=== PATIENT | female | born 1935 | race African-American/Black ===

== ENCOUNTER → 2016-05-15 | Outpatient (CLI) | payer MEDICARE, OTHER ==
[2015-02-01 11:32] VITALS: BP 151/89
[~2016-05-15] MED LIST: ATOR40TA59 PO; CITA40TA5 PO; GLIP10TA13 PO; HYDR-2666 PO; LISI1TAB7 PO; LOSA100T6 PO; MELO-156 PO; METO25TA4 PO; SITA100T PO
--- NOTE | 2016-05-15 17:32 | RAD ---
CT of the chest, abdomen and pelvis with out contrast, 05/15/2016: History: Restaging colon cancer Multidetector CT imaging was performed following oral ingestion of contrast. No IV contrast was administered as requested. Comparison is made to a study from 11/30/2015. There is a tiny 4 mm nodule in the lateral aspect of the right upper lobe as seen on image 18 of series #2 which is unchanged. There is a 2 mm nodule located just medial to this first nodule which is also unchanged. There is a 2-3 mm nodule in the lateral aspect of the right middle lobe as seen on image 32 of series #2 which appears to be unchanged. These nodules were also present in retrospect on the 08/21/2015 study and has shown no significant change. There are mild linear opacities posteromedially in both lung bases which are unchanged and probably represent areas of scarring. There is calcific plaquing of the aorta and coronary arteries. The ascending aorta is at the upper limits of normal in size but unchanged. No mediastinal adenopathy is seen. There appears to be a small hiatal hernia. There is a small calcification within the lateral aspect of the liver. The unopacified liver is otherwise unremarkable. No gallbladder abnormality is seen. No pancreatic abnormality is detected. The spleen is of normal size. The unopacified kidneys show no abnormality. Both adrenal glands are mildly enlarged but unchanged. The right adrenal gland demonstrates a low internal CT number compatible with an adrenal adenoma or hyperplasia. The left adrenal gland demonstrates an internal CT number of 20-35 Hounsfield units which is nonspecific. Aortoiliac calcific plaquing is present. No abdominal or pelvic adenopathy is seen. The bowel loops are not dilated. No free fluid is evident in the abdomen or pelvis. There is diastases of the rectus abdominis musculature with anterior bulging of the intervening fascia. There are moderate scattered degenerative changes in the spine. No destructive bony lesion is seen. IMPRESSION: 1. Stable tiny pulmonary nodules. 2. Bibasilar atelectasis and/or scarring. 3. Unchanged bilateral adrenal enlargement. 4. No new abnormality is detected. PQRS Compliance Statement: One or more of the following individualized dose reduction techniques were utilized for this examination: 1. Automated exposure control 2. Adjustment of the mA and/or kV according to patient size 3. Use of iterative reconstruction technique
== END | disposition home or self-care (01) ==
LOC: CT 11:48
PROVIDERS: ATTEND Internal Medicine Hematology & Oncology
DX: C18.9 Malignant neoplasm of colon, unspecified (principal)
CPT/HCPCS: 71250; 74176

== ENCOUNTER → 2016-06-12 | Outpatient (CLI) | payer MEDICARE, OTHER ==
[2015-02-01 11:32] VITALS: BP 151/89
--- NOTE | 2016-06-12 13:00 | RAD ---
DATE: 06/12/2016 EXAM: DIGITAL SCREEN BILAT W/CAD HISTORY: Routine screening COMPARISON: 07/13/2015 This study was interpreted with the benefit of Computerized Aided Detection (CAD). FINDINGS: There are scattered fibroglandular densities in the breasts. No new or enlarging breast densities are seen. Benign type calcifications are present. No suspicious microcalcifications have developed. IMPRESSION: Stable mammograms without evidence of malignancy. BI-RADS CATEGORY: 2 BENIGN FINDING(S) RECOMMENDED FOLLOW-UP: 12M 12 MONTH FOLLOW-UP PQRS compliance statement: Patient information was entered into a reminder system with a target due date for the next mammogram. Mammography is a sensitive method for finding small breast cancers, but it does not detect them all and is not a substitute for careful clinical examination. A negative mammogram does not negate a clinically suspicious finding and should not result in delay in biopsying a clinically suspicious abnormality. "Our facility is accredited by the [employer] Mammography Program."
== END | disposition home or self-care (01) ==
LOC: MAMMO 10:32
PROVIDERS: ATTEND Internal Medicine
DX: Z12.31 Encounter for screening mammogram for malignant neoplasm of breast (principal)
CPT/HCPCS: G0202; 77067

== ENCOUNTER → 2016-11-28 | Outpatient (CLI) | payer MEDICARE, OTHER ==
[2015-02-01 11:32] VITALS: BP 151/89
[~2016-11-28] MED LIST changes: -HYDR-2666 PO; +HYDR-2758 PO; +IOHEXOL 240 MG/ML 50ML VIAL. ONE; +IOHEXOL 240 MG/ML 50ML VIAL. PO ONE; -MELO-156 PO; +MELO7.5T29 PO
--- NOTE | 2016-11-28 12:31 | RAD ---
Indication restage colon cancer. Axial images through the chest, abdomen and pelvis were obtained and are compared to a study 05/15/2016. CT chest: Findings. The ascending thoracic aorta is at the upper limits of normal in size, 4 cm. There is no significant hilar or mediastinal adenopathy. Coronary artery calcification is noted. An acute finding in the chest is not seen. There are occasional small pulmonary nodules having a similar appearance to the previous exam. A new finding in the chest is not seen. There is no evidence of metastatic disease to the chest. CT abdomen and pelvis: Findings. No definite abnormality is seen associated with the liver but evaluation of same is limited in that no IV contrast has been administered. The spleen appears unremarkable. The gallbladder is grossly normal. No pancreatic abnormality is seen. There is bilateral adrenal enlargement, likely incidental, appearing similar to the previous exam. The kidneys appear unremarkable. There is marked diastases of the rectus muscles. An acute finding in the abdomen is not seen. There is no significant adenopathy. Evidence of metastatic disease in the abdomen is not seen. In the pelvis no mass or acute finding is seen. There is no evidence of metastatic disease. IMPRESSION:: No acute finding seen in the chest, abdomen or pelvis. No evidence of metastatic disease Ascending thoracic aorta at the upper limits of normal in size, 4 cm PQRS Compliance Statement: One or more of the following individualized dose reduction techniques were utilized for this examination: 1. Automated exposure control 2. Adjustment of the mA and/or kV according to patient size 3. Use of iterative reconstruction technique
== END | disposition home or self-care (01) ==
LOC: CT 10:39
PROVIDERS: ATTEND Internal Medicine Hematology & Oncology
DX: C18.9 Malignant neoplasm of colon, unspecified (principal)
CPT/HCPCS: 71250; 74176; Q9966

== ENCOUNTER → 2016-12-31 | Day surgery (SDC) | payer MEDICARE, OTHER ==
[~2016-12-31] MED LIST changes: +AMLO10TA2 PO; +DULO60CA6 PO; +HYDROmorphone 2 MG/ML VIAL IV PRN; -IOHEXOL 240 MG/ML 50ML VIAL. ONE; -IOHEXOL 240 MG/ML 50ML VIAL. PO ONE; +IV RINGERS,LACTATED 1000ML 1,000 ML IV SCH; +LIDOCAINE 1% PF 2 ML VIAL. ID PRN; +MORPHINE SULFATE 2 MG/ML DISP.SYRIN. IV PRN; +PROCHLORPERAZINE 10 MG/2 ML VIAL. IV PRN; +PROPOFOL 40 ML IV ONE; +fentaNYL PF VIAL 100 MCG/2 ML VIAL IV PRN
--- NOTE | 2016-12-31 09:42 | PDOC1 ---
HISTORY & PHYSICAL H&P Lexie Berumen [id number] 1935 12/06/2016 11:30 AM 03/17 [facility], [facility] [address] [place] [address] Ph. [phone] Patient: Lexie Berumen Date of : 1935 Date: 12/06/2016 11:30 AM Visit Type: Consult This 81 year old female presents for H/o colon cancer. History of Present Illness: 1. H/o colon cancer Risk Factors: personal history of colon cancer. Pertinent negatives include abdominal pain, change in bowel habits, change in stool caliber, constipation, decreased appetite, diarrhea, melena, nausea, rectal bleeding, vomiting, weight gain and weight loss. Additional information: Had colon cancer in 2015. Had surgery. Seen Dr. Hsieh. Has recent CT negative for any abnormality. INTAKE COMMENTS: Intake Comments: Nurse Note: the pt is here today to schedule a colonoscopy due to a h/o colon cancer that dx'd in 2014. PROBLEM LIST: Problem Description Onset Date Chronic Notes Spinal enthesopathy of lumbosacral region 06/02/2015 PAST MEDICAL/SURGICAL HISTORY (Detailed) Disease/disorder Onset Date Management Date Comments Cancer, colon Colon resection 2014 Diabetes type 2 Hypertension Medications (Active): Started Medication Directions Instruction Stopped 06/02/2015 amlodipine 10 mg tablet take 1 tablet by oral route every day 06/02/2015 atorvastatin 40 mg tablet take 1 tablet by oral route every day 06/02/2015 citalopram 40 mg tablet take 1 tablet by oral route every day 06/02/2015 Citracal Plus Magnesium 250 mg-40 mg-125 unit tablet take one tab po daily duloxetine 60 mg capsule,delayed release take 1 capsule by oral route every day 06/02/2015 glipizide ER 10 mg tablet, extended release 24 hr take 1 tablet by oral route every day with breakfast 06/02/2015 hydrocodone 5 mg-acetaminophen 325 mg tablet take 1 tablet by oral route every 6 hours as needed for pain 06/02/2015 Januvia 100 mg tablet take 1 tablet by oral route every day 06/02/2015 losartan 100 mg tablet take 1 tablet by oral route every day 06/02/2015 meloxicam 7.5 mg tablet take 1 tablet by oral route 2 times every day 06/02/2015 metoprolol tartrate 25 mg tablet take 1 tablet by oral route 2 times every day Zocor take 1 tablet by oral route every day in the evening Allergies: Ingredient Reaction Medication Name Comment ASPIRIN Stomach Pain REVIEW OF SYSTEMS System Neg/Pos Details Constitutional Negative Chills, fever, malaise, weight gain and weight loss. ENMT Negative Sore throat. Eyes Negative Double vision. Respiratory Negative Dyspnea and wheezing. Cardio Negative Chest pain and irregular heartbeat/palpitations. GI Positive See HPI. GI Negative Abdominal pain, change in bowel habits, change in stool caliber, constipation, decreased appetite, diarrhea, melena, nausea, see HPI, rectal bleeding and vomiting. Negative Dysuria and hematuria. Endocrine Negative Cold intolerance and heat intolerance. Psych Negative Anxiety. Integumentary Negative Hives and rash. MS Negative Joint pain. Martin/Lymph Negative Easy bleeding and easy bruising. Allergic/Immuno Negative Food allergies. VITAL SIGNS Time BP mm/Hg Pulse /min Resp /min Temp F Ht ft Ht in Ht cm Wt lb Wt kg BMI kg/ m2 BSA m2 O2 Sat% 11:43 AM 126/82 83 98.5 0.0 0.00 181.60 82.372 94 Time Measured by 11:43 AM Veronica Stratton PHYSICAL EXAM: Exam Findings Details Constitutional Normal Well developed. Eyes Normal Conjunctiva - Right: Normal, Left: Normal. Sclera - Right: Normal, Left: Normal. Nasopharynx Normal Lips/teeth/gums - Normal. Neck Exam Normal Inspection - Normal. Thyroid gland - Normal. Respiratory Normal Inspection - Normal. Auscultation - Normal. Cardiovascular Normal Regular rate and rhythm. No murmurs, gallops, or rubs. Vascular Normal Pulses - Carotids: Normal, Femoral: Normal, Dorsalis pedis: Normal. Abdomen Normal Inspection - Normal. Anterior palpation - No guarding. No abdominal tenderness. No hepatic enlargement. No splenic enlargement. No hernia. No Ascites. Skin Normal Inspection - Normal. Extremity Normal No edema. Psychiatric Normal Oriented to time, place, person, and situation. Appropriate mood and effect. Assessment/Plan # Detail Type Description 1. Assessment History of colon cancer (Z85.038). Patient Plan schedule colonoscopy at Plan Orders Further diagnostic evaluations ordered today include(s) Colonoscopy to be performed today. She is to schedule a follow-up visit with Ottoniel Acosta MD upon completion of work-up Electronically signed by: Ottoniel Acosta MD 12/06/2016 12:28 PM Document generated by: Ottoniel Acosta 12/06/2016 12:28 PM Raad Ruffin MD, Family Practice; Betito Woo MD Internal Medicine; Ha Padilla MD, Internal Medicine; Canelo Acosta MD Internal Medicine; Ottoniel Acosta MD, Gastroenterology; Checo Cornell MD, Rheumatology, S. Ivan King, Physical Medicine/Rehab J. Yg WEEKSN ------ 12/31/16 Patient seen and examined. No change in H&P. OTTONIEL ACOSTA MD Dec 31, 2016 09:42
[2016-12-31 10:40] VITALS: BP 156/73
== END | disposition home or self-care (01) ==
LOC: ENDOS 09:06
PROVIDERS: ATTEND Internal Medicine Gastroenterology
DX: Z87.19 Personal history of other diseases of the digestive system (principal); K57.30 Diverticulosis of large intestine without perforation or abscess without bleeding; E78.00 Pure hypercholesterolemia, unspecified; I10 Essential (primary) hypertension; M19.91 Primary osteoarthritis, unspecified site; D64.9 Anemia, unspecified; Z87.39 Personal history of other diseases of the musculoskeletal system and connective tissue; Z90.710 Acquired absence of both cervix and uterus; Z88.6 Allergy status to analgesic agent; Z86.39 Personal history of other endocrine, nutritional and metabolic disease
CPT/HCPCS: 45378; 82962; J2704

== ENCOUNTER → 2017-06-10 | Outpatient (CLI) | payer MEDICARE, OTHER ==
[~2017-06-10] MED LIST changes: -AMLO10TA2 PO; -ATOR40TA59 PO; -CITA40TA5 PO; -DULO60CA6 PO; -GLIP10TA13 PO; -HYDR-2758 PO; -HYDROmorphone 2 MG/ML VIAL IV PRN; +IOHEXOL 240 MG/ML 50ML VIAL. PO; -IV RINGERS,LACTATED 1000ML 1,000 ML IV SCH; -LIDOCAINE 1% PF 2 ML VIAL. ID PRN; -LISI1TAB7 PO; -LOSA100T6 PO; -MELO7.5T29 PO; -METO25TA4 PO; -MORPHINE SULFATE 2 MG/ML DISP.SYRIN. IV PRN; -PROCHLORPERAZINE 10 MG/2 ML VIAL. IV PRN; -PROPOFOL 40 ML IV ONE; -SITA100T PO; -fentaNYL PF VIAL 100 MCG/2 ML VIAL IV PRN
== END | disposition home or self-care (01) ==
LOC: CT 10:59
DX: C18.9 Malignant neoplasm of colon, unspecified (principal); K43.9 Ventral hernia without obstruction or gangrene; R91.8 Other nonspecific abnormal finding of lung field; Z90.710 Acquired absence of both cervix and uterus
CPT/HCPCS: 71250; 74176; Q9966

== ENCOUNTER → 2018-06-30 | Outpatient (CLI) | payer MEDICARE, OTHER ==
[2016-12-31 10:40] VITALS: BP 156/73
[~2018-06-30] MED LIST changes: +AMLO10TA8 PO; +ATOR40TA59 PO; +CITA40TA5 PO; +DULO60CA6 PO; +GLIP10TA13 PO; +HYDR-2761 PO; -IOHEXOL 240 MG/ML 50ML VIAL. PO; +IOHEXOL 240 MG/ML 50ML VIAL. PO ONE; +LISI1TAB7 PO; +LOSA100T14 PO; +MELO7.5T29 PO; +METO25TA4 PO; +SITA100T PO
--- NOTE | 2018-06-30 10:29 | RAD ---
CT of the chest, abdomen and pelvis without contrast, 06/30/2018: HISTORY: Colon cancer Multidetector CT imaging was performed following oral ingestion of contrast. No IV contrast was administered for this study. Comparison is made to an exam from 06/10/2017. Two tiny pulmonary nodules are again noted in the right upper lobe on image 19 of series #2. The largest of these measures 4-5 mm and is unchanged. A 3 mm nodule in the anterior aspect of left upper lobe seen on image 14 of series #2 appears unchanged. A faint 4 mm groundglass opacity seen in the left upper lobe on image 28 of series #2 is also unchanged. There are a few scattered parenchymal scars. No acute infiltrate or mass is seen. There is no evidence of pleural fluid. Moderate coronary artery calcifications are present. The ascending aorta is at the upper limits of normal in size and unchanged, measuring approximately 4 cm in width on the coronal views. No mediastinal adenopathy is evident. The unopacified liver is unremarkable. No gallbladder abnormality is seen. The pancreas is unremarkable. The spleen is of normal size. The unopacified kidneys show no evidence of mass or obstruction. There is bilateral renal cortical scarring. There is mild unchanged low density thickening of both adrenal glands compatible with adrenal hyperplasia or small adenomas. There is moderate aortoiliac calcific plaquing without evidence of aneurysm. No abdominal or pelvic adenopathy is seen. The bowel loops are not dilated. There appears to be a small hiatal hernia. No free fluid or free air is evident in the abdomen or pelvis. There is unchanged diastases of the rectus abdominis musculature with moderate anterior bulging of the intervening fascia. There are moderate multilevel degenerative changes in the spine. There is a mild anterolisthesis at L5-S1 due to facet joint arthropathy. IMPRESSION: 1. Stable tiny bilateral pulmonary nodules. 2. Moderate coronary artery disease. 3. Additional chronic findings as instructed above. 4. No CT evidence of metastatic disease in the chest, abdomen or pelvis. PQRS Compliance Statement: One or more of the following individualized dose reduction techniques were utilized for this examination: 1. Automated exposure control 2. Adjustment of the mA and/or kV according to patient size 3. Use of iterative reconstruction technique Electronically signed by: Isaias Norman MD (06/30/2018 10:27 AM) [facility]
== END | disposition home or self-care (01) ==
LOC: CT 08:13
PROVIDERS: ATTEND Internal Medicine Hematology & Oncology
DX: C18.2 Malignant neoplasm of ascending colon (principal); R91.8 Other nonspecific abnormal finding of lung field; K44.9 Diaphragmatic hernia without obstruction or gangrene; I25.10 Atherosclerotic heart disease of native coronary artery without angina pectoris; M12.88 Other specific arthropathies, not elsewhere classified, other specified site; M43.17 Spondylolisthesis, lumbosacral region
CPT/HCPCS: 71250; 74176; Q9966

== ENCOUNTER 2020-09-12 12:18 | Emergency (ER) | payer OTHER, MEDICARE ==
[~2020-09-12] VITALS: Ht 162.6 cm; Wt 78.2 kg
[~2020-09-12 12:18] MED LIST changes: +AMLO-187 PO; -AMLO10TA8 PO; -IOHEXOL 240 MG/ML 50ML VIAL. PO ONE; +LISI1TAB20 PO; -LISI1TAB7 PO
--- NOTE | 2020-09-12 13:47 | RAD ---
EXAM: Right humerus, 2 views; right elbow, 3 views; right forearm, 2 views. HISTORY: Pain. COMPARISON: None. FINDINGS: 2 views of the right humerus, 3 views of the right elbow and 2 views of the right forearm a re obtained. There is no fracture, dislocation or subluxation. There is no lytic or sclerotic osseous lesion or periosteal reaction. There is first carpometacarpal joint space narrowing with subchondral sclerosis and spurring. IMPRESSION: No acute osseous finding. Electronically signed by: Malissa Rodrigez MD (09/12/2020 1:45 PM) ALEJANDRA
[2020-09-12 14:05] VITALS: BP 185/78
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
--- NOTE | 2020-09-12 14:56 | RAD ---
EXAM: Lumbar spine CT without contrast. HISTORY: Pain. Fall. TECHNIQUE: Computed tomographic images of the lumbar spine were obtained without contrast. Multiplana r reformatting was performed. *One or more of the following individualized dose reduction techniques were utilized for this examina tion: 1. Automated exposure control. 2. Adjustment of the mA and/or kV according to patient size. 3. Use of iterative reconstruction technique. COMPARISON: MRI dated 07/11/2015. FINDINGS: There is no acute or subacute fracture. There is grade 1 anterolisthesis of L4 on L5, measu ring 4 mm. There is grade 1 anterolisthesis of L5 on S1, measuring 6 mm. There is 2 mm retrolisthesis of L1 on L2 and L2 on L3. There is multilevel endplate remodeling. There is vacuum phenomenon at L4- L5 and L5-S1. There is suspected bone demineralization. There is no suspicious osseous lesion. There is a 1.6 cm nodule or nodular thickening involving the left adrenal gland. There is aortic and biilia c atherosclerosis. There is subchondral sclerosis and vacuum phenomenon involving the sacroiliac join ts. The uterus is absent. At L1-L2, there is a minimal disc bulge and endplate remodeling. There is minimal retrolisthesis. The re is mild bilateral facet arthropathy. There is no stenosis. At L2-L3, there is a mild disc bulge and endplate remodeling. There there is retrolisthesis. Is mild bilateral facet arthropathy. There is mild right foraminal stenosis. At L3-L4, there is a mild disc bulge and endplate remodeling. There is mild bilateral facet arthropat hy. There is mild bilateral foraminal stenosis. At L4-5, there is a left foraminal to extra foraminal disc protrusion and slight superior extrusion s uperimposed on a disc bulge and endplate remodeling. There is moderate to severe bilateral facet arth ropathy. There is grade 1 anterolisthesis. There is moderate to severe bilateral foraminal stenosis. There is moderate central canal stenosis. At L5-S1, there are bilateral foraminal to extra foraminal disc protrusions and osteophyte complexes superimposed on a disc bulge and endplate osteophytosis. There is severe bilateral facet arthropathy. There is grade 1 anterolisthesis. There is severe right greater than left foraminal stenosis. There is moderate central canal stenosis. IMPRESSION: 1. Multilevel degenerative change involving the lumbar spine, described in detail above. This results in significant stenosis at the aforementioned levels. These findings are similar compared to the [place] or MRI, allowing for differences in imaging modality. 2. Mild degenerative multilevel listhesis, described above. 3. 1.6 cm left adrenal nodule or nodular thickening of the left adrenal gland. There is also a right adrenal nodule demonstrated on a CT performed 06/30/2018 which is excluded from the [id number]. The stability of the left adrenal nodule favors benignity. Electronically signed by: Malissa Rodrigez MD (09/12/2020 2:53 PM) [id number]
== END 2020-09-12 15:20 | disposition home or self-care (01) ==
LOC: ER 12:18
DX: M54.5 Low back pain (principal); G89.11 Acute pain due to trauma; M79.631 Pain in right forearm; M25.521 Pain in right elbow; M25.511 Pain in right shoulder; E78.00 Pure hypercholesterolemia, unspecified; E11.9 Type 2 diabetes mellitus without complications; I10 Essential (primary) hypertension; Z90.710 Acquired absence of both cervix and uterus; Z98.890 Other specified postprocedural states; Z85.038 Personal history of other malignant neoplasm of large intestine; V49.59XA Passenger injured in collision with other motor vehicles in traffic accident, initial encounter; Y93.89 Activity, other specified; Y92.488 Other paved roadways as the place of occurrence of the external cause; Y99.8 Other external cause status
CPT/HCPCS: 72131; 73060; 73080; 73090; 99284-25